=== PATIENT | male | born 1970 | race Caucasian/White ===

== ENCOUNTER 2016-11-08 03:18 | Inpatient (IN) | payer MEDICAID ==
[~2016-11-08] VITALS: Ht 188 cm; Wt 84.8 kg
[2016-11-08 03:53] LABS: BASOPHIL % 0.4 % (0-2); PLATELET COUNT 187 x10^3mcL (130-400); RED CELL DISTRIBUTION WIDTH 14.2 % (11.5-14.5)
[2016-11-08 04:04] LABS: CALCIUM 9.2 mg/dL (8.5-10.1); CHLORIDE SERUM 97 mmol/L (98-107); CREATININE SERUM 0.8 mg/dL (0.7-1.3); GFR1 > 60 mL/min; GLUCOSE SERUM 115 mg/dL (74-106); POTASSIUM SERUM 3.5 mmol/L (3.5-5.1); SODIUM SERUM 133 mmol/L (136-145)
[2016-11-08 04:08] LABS: ALBUMIN 3.8 g/dL (3.4-5.0); ALKALINE PHOSPHATASE 50 U/L (46-116); ALT/SGPT 45 U/L (16-63); AMYLASE 50 U/L (25-115); AST/SGOT 45 U/L (15-37); LIPASE 251 IU/L (73-393); TOTAL PROTEIN, SERUM 7.1 g/dL (6.4-8.2)
[2016-11-08 04:09] LABS: MAGNESIUM 1.9 mg/dL (1.8-2.4); PHOSPHOROUS 3.1 mg/dL (2.5-4.9)
[2016-11-08 05:44] VITALS: BP 142/84
[2016-11-08 05:56] VITALS: BP 142/84
[2016-11-08 06:47] LABS: CHOLESTEROL/HDL RATIO 2.2
[2016-11-08 06:54] LABS: FREE T4 1.14 ng/dL (0.76-1.46); FREE THYROXINE INDEX 2.4 ug/dL (1.4-4.5); T4(THYROXINE) 6.4 ug/dL (4.7-13.3)
[2016-11-08 07:22] LABS: T3 TOTAL 1.12 ng/mL
[2016-11-08 09:23] VITALS: BP 129/85
[2016-11-08 10:57] LABS: microscopic required? NO
[2016-11-08 11:07] LABS: UA SPECIFIC GRAVITY 1.015 (1.005-1.035); urine erythrocyte NEGATIVE (NEGATIVE)
[2016-11-08 11:21] LABS: AMPHETAMINE QUAL UR NONE DETECTED (NEG <=1000)
[2016-11-08 12:36] VITALS: BP 138/91
[2016-11-08 16:50] VITALS: BP 134/90
[2016-11-08 21:17] VITALS: BP 131/77
[2016-11-09 05:33] VITALS: BP 121/80
[2016-11-09 06:22] LABS: CALCIUM 8.4 mg/dL (8.5-10.1); CARBON DIOXIDE 24.7 mmol/L (21-32); CHLORIDE SERUM 105 mmol/L (98-107); CREATININE SERUM 0.8 mg/dL (0.7-1.3); GFR1 > 60 mL/min; GLUCOSE SERUM 101 mg/dL (74-106); POTASSIUM SERUM 3.8 mmol/L (3.5-5.1); SODIUM SERUM 139 mmol/L (136-145)
[2016-11-09 07:19] LABS: BASOPHIL % 0.4 % (0-2); PLATELET COUNT 161 x10^3mcL (130-400); RED CELL DISTRIBUTION WIDTH 14.2 % (11.5-14.5)
[2016-11-09 08:25] VITALS: BP 124/77
[2016-11-09 12:11] VITALS: Ht 188 cm; Wt 84.8 kg
[2016-11-09 13:59] VITALS: BP 123/84
[2016-11-09 18:00] VITALS: BP 123/84
[2016-11-09 21:16] VITALS: BP 122/83
[2016-11-10 05:45] VITALS: BP 115/82
[2016-11-10] MEDS ORDERED: THERA TABS1 TAB PO (07:21)
[2016-11-10] MEDS ORDERED: FOL1 PO (07:21)
[2016-11-10] MEDS ORDERED: ATI1 PO (07:21)
[2016-11-10] MEDS ORDERED: THI100 PO (07:21)
[2016-11-10 10:18] VITALS: BP 123/87
[2016-11-10 13:03] VITALS: BP 123/87
== END 2016-11-10 14:25 | disposition home or self-care (01) | DRG 775 ==
LOC: ED 03:18 → DU 05:09
PROVIDERS: Emergency Medicine; ADMIT Family Medicine
DX: F10.239 Alcohol dependence with withdrawal, unspecified (principal); E87.1 Hypo-osmolality and hyponatremia; T51.0X1A Toxic effect of ethanol, accidental (unintentional), initial encounter; G25.2 Other specified forms of tremor; R73.03 Prediabetes; Z68.24 Body mass index [BMI] 24.0-24.9, adult; Y92.009 Unspecified place in unspecified non-institutional (private) residence as the place of occurrence of the external cause
CPT/HCPCS: 82962; 83880; 84439; G0480; J2060; J2405; J2550; J2765; J3411; J3475; J3490; J7030; Q0092